=== PATIENT | male | born 1995 | race Caucasian/White ===

== ENCOUNTER 2019-08-26 23:48 | Emergency (ER) | payer BC ==
[~2019-08-26] VITALS: Ht 180.3 cm; Wt 109.1 kg
[2019-08-26 23:56] VITALS: TEMP 97.7
[2019-08-27] MEDS ORDERED: EPIPEN 2-PAK1 MG/ML IM (00:31)
[2019-08-27] MEDS ORDERED: PREDNISONE20 MG PO (00:31)
[2019-08-27 01:05] VITALS: BP 139/87; PULSE 79
== END 2019-08-27 01:05 | disposition home or self-care (01) ==
LOC: COL.ER 23:48
DX: T78.40XA Allergy, unspecified, initial encounter (principal)
CPT/HCPCS: J7512

== ENCOUNTER 2019-09-09 19:45 | Emergency (ER) | payer BC ==
[~2019-09-09] VITALS: Ht 180.3 cm; Wt 109.1 kg
[~2019-09-09 19:45] MED LIST: EPIPEN 2-PAK1 MG/ML IM; PREDNISONE20 MG PO
[2019-09-09 19:48] VITALS: TEMP 99.8
[2019-09-09] MEDS ORDERED: ZITHROMAX 250M250 MG PO (21:18)
[2019-09-09 21:37] VITALS: BP 155/91; PULSE 85
== END 2019-09-09 21:40 | disposition home or self-care (01) ==
LOC: COL.ER 19:45
DX: J20.9 Acute bronchitis, unspecified (principal)